=== PATIENT | female | born 1945 | race Asian ===

== ENCOUNTER 2017-08-01 13:33 | Emergency (ER) | payer OTHER, MEDICARE ==
[2017-08-01] MEDS ORDERED: HYDROCODONE/ACETAMINOPHEN 5-325 MG TABLET PO ONE (14:40)
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
[2017-08-01 16:43] VITALS: BP 172/84
== END 2017-08-01 16:45 | disposition home or self-care (01) ==
LOC: ER 13:33
DX: M25.512 Pain in left shoulder (principal); M54.5 Low back pain; V44.5XXA Car driver injured in collision with heavy transport vehicle or bus in traffic accident, initial encounter; E78.00 Pure hypercholesterolemia, unspecified; I10 Essential (primary) hypertension; E11.9 Type 2 diabetes mellitus without complications; G89.29 Other chronic pain; Z90.710 Acquired absence of both cervix and uterus
CPT/HCPCS: 99284

== ENCOUNTER 2017-12-16 21:57 | Inpatient (IN) | payer MEDICARE ==
[2017-12-16] MEDS ORDERED: ONDANSETRON 4 MG TAB.RAPDIS PO ONE (22:25)
[2017-12-16] MEDS ORDERED: MORPHINE SULFATE 10 MG/ML INJ IV ONE (23:21)
[2017-12-16] MEDS ORDERED: ONDANSETRON HCL INJ/PF 4 MG/2 ML SDV IV ONE (23:22)
--- NOTE | 2017-12-16 23:31 | ER Document Report ---
ED Medical Screen (RME) - General Chief Complaint: Back Pain Stated Complaint: LOWER BACK PAIN Time Seen by Provider: 12/16/17 23:15 Mode of Arrival: Ambulatory Information source: Patient TRAVEL OUTSIDE OF THE [place] IN LAST 30 DAYS: No - HPI Patient complains to provider of: abdominal pain Notes: 12/16/17 23:29 Patient is here with complaints of abdominal pain that radiates into her back. States that the pain started a few hours ago. She has a prior history of colon cancer with partial bowel resection. She also believes that her appendix has been removed. She states that the pain is in the right lower abdomen and radiates to the back. Since she has been here she has developed some nausea vomiting. She does complain of some increased urination. Physical exam: Patient appears to be rather uncomfortable. At one point she was noted to be lying on the floor vomiting. On exam she has some tenderness to the right lower quadrant. Do not appreciate any palpable pulsatile mass. All 4 extremity pulses are equal. Plan: Patient will be moved to the main side of the emergency department. I have ordered a CBC, CMP, lipase, lactate, UA, CT abdomen and pelvis with IV contrast. An initial examination was made on the patient as part of the triage process, and it was determined a more comprehensive evaluation was necessary. Initial labs were ordered and patient was transferred to another provider in the ED who assumed care and finished evaluation and plan. - Related Data Allergies/Adverse Reactions: No Known Allergies Allergy (Verified 07/22/16 08:15) Past Medical History - Social History Chew tobacco use (# tins/day): No Frequency of alcohol use: None Drug Abuse: None - Past Medical History Cardiac Medical History: Reports: Hx Hypercholesterolemia, Hx Hypertension Denies: Hx Coronary Artery Disease, Hx Heart Attack Pulmonary Medical History: Denies: Hx Asthma, Hx Bronchitis, Hx COPD, Hx Pneumonia Neurological Medical History: Denies: Hx Cerebrovascular Accident, Hx Seizures Endocrine Medical History: Reports: Hx Diabetes Mellitus Type 2 - borderline Renal/ Medical History: Denies: Hx Peritoneal Dialysis Musculoskeltal Medical History: Reports Hx Arthritis Past Surgical History: Reports: Hx Bowel Surgery - colon resection. Denies: Hx Hysterectomy, Hx Pacemaker - Immunizations Immunizations up to date: No Hx Diphtheria, Pertussis, Tetanus Vaccination: No Physical Exam - Vital signs Vitals: Temp Pulse Resp BP Pulse Ox 98.7 F 75 18 132/86 H 100 12/16/17 22:21 12/16/17 22:21 12/16/17 22:21 12/16/17 22:21 12/16/17 22:21 Course - Vital Signs Vital signs: Temp Pulse Resp BP Pulse Ox 98.7 F 75 18 132/86 H 100 12/16/17 22:21 12/16/17 22:21 12/16/17 22:21 12/16/17 22:21 12/16/17 22:21
[2017-12-16 23:51] LABS: APPEARANCE,URINE CLEAR; BILIRUBIN,URINE NEGATIVE (NEGATIVE); COLOR,URINE STRAW; GLUCOSE, URINE >=500 mg/dL (NEGATIVE); KETONES,URINE NEGATIVE (NEGATIVE); LEUKOCYTE ESTERASE,URINE NEGATIVE (NEGATIVE); NITRITE,URINE NEGATIVE (NEGATIVE); PROTEIN,URINE NEGATIVE (NEGATIVE); URINE SPECIFIC GRAVITY 1.024; UROBILINOGEN,URINE NEGATIVE mg/dL (<2.0)
[2017-12-17 00:36] LABS: HEMATOCRIT 38.7 % (36.0-47.0); HEMOGLOBIN 13.5 g/dL (12.0-15.5); MEAN CORPUSCULAR HEMOGLOBIN 29.5 pg (27.0-33.4); MEAN CORPUSCULAR HGB CONC 34.8 g/dL (32.0-36.0); MEAN CORPUSCULAR VOLUME 85 fl (80-97); PLATELET COUNT 250 10^3/uL (150-450); RED BLOOD COUNT 4.57 10^6/uL (3.72-5.28); RED CELL DISTRIBUTION WIDTH 13.7 % (11.5-14.0); WHITE BLOOD COUNT 8.8 10^3/uL (4.0-10.5)
--- NOTE | 2017-12-17 00:36 | ER Document Report ---
ED General - General Chief Complaint: Back Pain Stated Complaint: LOWER BACK PAIN Time Seen by Provider: 12/16/17 23:15 Mode of Arrival: Ambulatory Notes: Patient is a 72-year-old female who presents to the emergency department with complaints of right lower quadrant abdominal pain that radiates into her back. Patient states that this pain started last night. Patient states that she began vomiting on arrival to the emergency department. Patient denies any diarrhea, patient does state that sometimes when she attempts to have a bowel movement she is unable to have one. Patient was given pain medications prior to my exam, and patient states that her pain has resolved at this time. Patient reports a past medical history of hypertension, hyperlipidemia, non- insulin-dependent diabetes and colon cancer with a colon resection. TRAVEL OUTSIDE OF THE [place] IN LAST 30 DAYS: No - Related Data Allergies/Adverse Reactions: No Known Allergies Allergy (Verified 07/22/16 08:15) Past Medical History - General Information source: Patient - Social History Smoking Status: Unknown if Ever Smoked Chew tobacco use (# tins/day): No Frequency of alcohol use: None Drug Abuse: None Family History: Reviewed & Not Pertinent Patient has suicidal ideation: No Patient has homicidal ideation: No - Past Medical History Cardiac Medical History: Reports: Hx Hypercholesterolemia, Hx Hypertension Denies: Hx Coronary Artery Disease, Hx Heart Attack Pulmonary Medical History: Denies: Hx Asthma, Hx Bronchitis, Hx COPD, Hx Pneumonia Neurological Medical History: Denies: Hx Cerebrovascular Accident, Hx Seizures Endocrine Medical History: Reports: Hx Diabetes Mellitus Type 2 - borderline Renal/ Medical History: Denies: Hx Peritoneal Dialysis Musculoskeltal Medical History: Reports Hx Arthritis Past Surgical History: Reports: Hx Bowel Surgery - colon resection. Denies: Hx Hysterectomy, Hx Pacemaker - Immunizations Immunizations up to date: No Hx Diphtheria, Pertussis, Tetanus Vaccination: No Hx Pneumococcal Vaccination: 09/12/00 Review of Systems - Review of Systems Constitutional: No symptoms reported EENT: No symptoms reported Cardiovascular: No symptoms reported Respiratory: No symptoms reported Gastrointestinal: See HPI Genitourinary: No symptoms reported Female Genitourinary: No symptoms reported Musculoskeletal: See HPI Skin: No symptoms reported Hematologic/Lymphatic: No symptoms reported Neurological/Psychological: No symptoms reported Physical Exam - Vital signs Vitals: Temp Pulse Resp BP Pulse Ox 98.7 F 75 18 132/86 H 100 12/16/17 22:21 12/16/17 22:21 12/16/17 22:21 12/16/17 22:21 12/16/17 22:21 - Notes Notes: PHYSICAL EXAMINATION: GENERAL: Ill-appearing, well-nourished and in mild distress. HEAD: Atraumatic, normocephalic. EYES: Pupils equal round and reactive to light, extraocular movements intact, conjunctiva are normal. ENT: Nares patent, oropharynx clear without exudates. Moist mucous membranes. NECK: Normal range of motion, supple without lymphadenopathy LUNGS: Breath sounds clear to auscultation bilaterally and equal. No wheezes rales or rhonchi. HEART: Regular rate and rhythm without murmurs ABDOMEN: Soft, mildly tender to right lower quadrant, non-distended abdomen. Normoactive bowel sounds. No guarding, no rebound. No masses appreciated. Female : deferred. Musculoskeletal: Normal range of motion, no pitting or edema. No cyanosis. NEUROLOGICAL: Cranial nerves grossly intact. Normal speech. Normal sensory, motor exams PSYCH: Normal mood, flat affect. SKIN: Warm, Dry, normal turgor, no rashes or lesions noted. Course - Re-evaluation Re-evalutation: On initial exam, patient lying in the position on her right side. Assisted patient onto her back for thorough physical examination. Patients abdomen soft, mildly tender with palpation to right lower quadrant, bowel sounds active in all 4 quadrants. Patient reports that pain is better since she had the pain medication that was ordered upfront. Patient will have a CTA abdomen pelvis done to rule out ischemic bowel. 12/17/17 01:00 Patient physical exam remains unchanged, patient quiet states pain is "better" and rates 2/5, vitals stable, lactic acid 3.5, will send patient to CT scan prior to results of BUN/creat due to elevated lactic and initial patient presentation. 12/17/17 01:18 Patient remains in radiology. Patient with marked bandemia, will start invanz 1 gram IV. 12/17/17 01:32 Patient returns from radiology. Patient vomited x1 in radiology , patient reports pain has returned and is 5/5 to right lower abdomen. Abdominal exam remains unchanged, no increase in pain with palpation, soft, non- distended. 12/17/17 02:17 Consulted surgery, Dr. Andre. Patient CT results shows no acute findings, however with patients labs and presentation, I believe surgical consult is necessary. 12/17/17 02:25 Dr. Andre present for physical exam. Dr. Andre does not believe patient has a surgical abdomen, suggest admit to hospitalist and he will consult. Patient denies any primary care physician and states she has not taken any medications in years. 12/17/17 02:43 Consulted hospitalist, Dr. Moreno, he will come see patient. Patient with no change in status, mild RLQ pain, declines additional pain medications. Patient gives permission to call her son, Sang Cary. Attempted with no answer. 12/17/17 02:59 Dr. Moreno at bedside for evaluation and will accept patient for admission. - Vital Signs Vital signs: Temp Pulse Resp BP Pulse Ox 98.5 F 94 16 135/68 H 97 12/17/17 03:50 12/17/17 03:50 12/17/17 03:50 12/17/17 03:50 12/17/17 03:50 - Laboratory Result Diagrams: 12/17/17 00:16 12/17/17 00:16 Laboratory results interpreted by me: 12/16/17 12/17/17 12/17/17 23:38 00:16 00:16 Band Neutrophils % 32 H Lymphocytes % (Manual) 4 L Monocytes % (Manual) 0 L Metamyelocytes % 1 H Abs Neuts (Manual) 8.4 H Abs Lymphs (Manual) 0.4 L Abs Monocytes (Manual) 0.0 L Glucose 455 H* Lactic Acid Alkaline Phosphatase 146 H Urine Glucose (UA) >=500 H Urine Blood SMALL H 12/17/17 00:16 Band Neutrophils % Lymphocytes % (Manual) Monocytes % (Manual) Metamyelocytes % Abs Neuts (Manual) Abs Lymphs (Manual) Abs Monocytes (Manual) Glucose Lactic Acid 3.5 H Alkaline Phosphatase Urine Glucose (UA) Urine Blood Critical Care Note - Critical Care Note Total time excluding time spent on procedures (mins): 35 - Acute abdomen evaluation, lactic acidosis, bandemia Comments: 35 minutes of critical care time spent in direct contact evaluating and reevaluating the patient, treating symptoms, reviewing labs and studies and speaking with surgeon and hospitalist consultants excluding any procedures Discharge - Discharge Clinical Impression: Bandemia, Hyperglycemia, Lactic acid acidosis Abdominal pain Qualifiers: Abdominal location: generalized Qualified Code(s): R10.84 - Generalized abdominal pain Vomiting Qualifiers: Vomiting type: unspecified Vomiting Intractability: non-intractable Nausea presence: with nausea Qualified Code(s): R11.2 - Nausea with vomiting, unspecified Condition: Fair Disposition: ADMITTED INPATIENT Admitting Provider: Hospitalist Unit Admitted: Telemetry
[2017-12-17 01:03] LABS: ABSOLUTE LYMPHOCYTES# (MANUAL) 0.4 10^3/uL (0.5-4.7); ABSOLUTE NEUTROPHILS# (MANUAL) 8.4 10^3/uL (1.7-8.2); BASOPHILS % (MANUAL) 0 % (0-2); EOSINOPHILS % (MANUAL) 0 % (0-6); LYMPHOCYTES % (MANUAL) 4 % (13-45); MONOCYTES % (MANUAL) 0 % (3-13); SEGMENTED NEUTROPHILS % (MAN) 63 % (42-78); TOTAL CELLS COUNTED 100; TOXIC VACUOLATION PRESENT
[2017-12-17 01:05] LABS: PLATELET COMMENT ADEQUATE; PLATELET LARGE PRESENT; RBC MORPHOLOGY COMMENT NORMO-CYTIC/CHROMIC
[2017-12-17 01:06] LABS: BAND NEUTROPHILS % (MANUAL) 32 % (3-5); METAMYELOCYTES % (MANUAL) 1 % (0)
[2017-12-17 01:12] LABS: ALANINE AMINOTRANSFERASE 25 U/L (9-52); ALBUMIN 4.4 g/dL (3.5-5.0); ALKALINE PHOSPHATASE 146 U/L (38-126); ANION GAP 15 (5-19); ASPARTATE AMINO TRANSFERASE 21 U/L (14-36); BILIRUBIN,DIRECT 0.3 mg/dL (0.0-0.4); BILIRUBIN,TOTAL 0.6 mg/dL (0.2-1.3); BLOOD UREA NITROGEN 16 mg/dL (7-20); CALCIUM 9.1 mg/dL (8.4-10.2); CARBON DIOXIDE 24 mmol/L (22-30); CHLORIDE 99 mmol/L (98-107); LIPASE 75.3 U/L (23-300); POTASSIUM 3.6 mmol/L (3.6-5.0); SODIUM 138.2 mmol/L (137-145); TOTAL PROTEIN 7.4 g/dL (6.3-8.2)
[2017-12-17] MEDS ORDERED: ERTAPENEM SODIUM INJ 1 GM VIAL IV ONE (01:18)
[2017-12-17 01:22] LABS: GLUCOSE 455 mg/dL (75-110)
[2017-12-17] MEDS ORDERED: FENTANYL CITRATE INJ/PF 100 MCG/2 ML AMPUL IV ONE (01:31)
[2017-12-17] MEDS ORDERED: METOCLOPRAMIDE HCL INJ/PF 10 MG/2 ML SDV IV ONE (01:32)
[2017-12-17 01:39] LABS: PROTHROMBIN TIME 12.6 SEC (11.4-15.4)
[2017-12-17] MEDS ORDERED: NORMAL SALINE 1000 ML 1,000 ML IV ONE ×4 (01:55→17:38)
--- NOTE | 2017-12-17 02:07 | RADIOLOGY REPORT (SQ) ---
EXAM DESCRIPTION: CT ABDOMEN AND PELVIS WITH CONTRAST CLINICAL HISTORY: abdominal pain, eval for ischemic bowel COMPARISON: None Available. TECHNIQUE: CTA of the abdomen and pelvis performed following IV administration of 100 mL of Isovue-370. 3-D/MIP reformatted images available. DLP: 1145.10 mGycm FINDINGS: Lung Bases: The visualized lung bases imaging bibasilar dependent atelectasis. Bones: No destructive bone lesions identified. Degenerative spondylosis. Abdomen: CTA: The abdominal aorta has normal caliber with mild atherosclerotic plaque. No evidence of dissection. There is in-line flow from the abdominal aorta into the common iliac, external iliac, and superficial femoral arteries. No evidence of flow-limiting stenosis. The internal iliac and profunda femoral artery are patent proximally. The renal arteries are patent bilaterally. No definite accessory renal arteries identified. The celiac artery is widely patent with normal branch pattern. The superior mesenteric artery has normal caliber without evidence of stenosis, pseudoaneurysm, or dissection. Branch vessels appear patent. The inferior mesenteric artery is patent. Liver: The liver has normal size and density. No intrahepatic mass or biliary dilatation. Gallbladder: No calcified gallstones. Spleen, Pancreas, and Adrenal Glands: The spleen, pancreas, and adrenal glands are unremarkable. Kidneys: Mild right hydronephrosis and hydroureter. No obstructing ureteral calculi identified. Mild soft tissue prominence at the right UVJ of indeterminate etiology. No left-sided hydronephrosis. Vasculature: IVC is unremarkable. The portal vein is patent. Stomach: The stomach and duodenum have normal course. Other: No free intraperitoneal air. Small fat-containing ventral hernia. Pelvis: Bladder: Urinary bladder is unremarkable. Bowel: No dilated loops of large or small bowel. Appendix: Postoperative change of the cecum. No evidence of appendicitis. Pelvis: Uterus is not enlarged. IMPRESSION: 1. No evidence of vascular stenosis or occlusion involving the visceral arteries. No aortic aneurysm or dissection. 2. Mild right hydronephrosis and hydroureter with ill-defined soft tissue thickening at the right UVJ. No right ureteral calculus identified. Urology consult may be helpful. This exam was performed according to our departmental dose-optimization program, which includes automated exposure control, adjustment of the mA and/or kV according to patient size and/or use of iterative reconstruction technique.
[2017-12-17] MEDS ORDERED: OXYCODONE-ACETAMINOPHEN 5-325 MG TABLET PO PRN (03:26)
[2017-12-17] MEDS ORDERED: ONDANSETRON HCL INJ/PF 4 MG/2 ML SDV IV PRN (03:26)
[2017-12-17] MEDS ORDERED: DEXTROSE 50%-WATER 25 GM/50 ML DISP.SYRIN IV PRN ×2 (03:34)
[2017-12-17] MEDS ORDERED: DEXTROSE 40% GEL 15 GM TUBE PO PRN ×2 (03:34)
[2017-12-17] MEDS ORDERED: GLUCAGON,HUMAN RECOMB 1 MG INJ IM PRN (03:34)
--- NOTE | 2017-12-17 03:49 | PDOC H&P ---
History of Present Illness Admission Date/PCP: 12/17/17 03:14 History of Present Illness: ESE ALLEN is a 72 year old female patient presented with chief complaint of right lower quadrant pain. During my encounter patient is heavily sedated with morphine and fentanyl and she is not source of history. Brief history is obtained from ER attending note. As per ER attending note patient presented with chief complaint of lower quadrant abdominal pains that radiates into her back. Patient states that this pain started last night patient states she began vomiting on arrival to the emergency department. Her past medical history is remarkable for hypertension, diabetes mellitus, hyperlipidemia and colon cancer she is status post resection. Her initial blood work shows bandemia of 32 and lactic acidosis of 3.5. CT scan of the abdomen is negative for renal calculi. Detailed history and review of systems unobtainable. Past Medical History Cardiac Medical History: Reports: Hyperlipidema, Hypertension Denies: Coronary Artery Disease, Myocardial Infarction Pulmonary Medical History: Denies: Asthma, Bronchitis, Chronic Obstructive Pulmonary Disease (COPD), Pneumonia Neurological Medical History: Denies: Seizures Endocrine Medical History: Reports: Diabetes Mellitus Type 2 - borderline GI History Note: Colon cancer Musculoskeltal Medical History: Reports: Arthritis Hematology: Denies: Anemia Past Surgical History Past Surgical History: Reports: Other - Partial colectomy Denies: Hysterectomy, Pacemaker Social History Smoking Status: Unknown if Ever Smoked Family History Family History: Reviewed & Not Pertinent Parental Family History Reviewed: No - Unobtainable because of patient's mental status Children Family History Reviewed: Unknown Sibling(s) Family History Reviewed.: Unknown Medication/Allergy Home Medications: No Home Medications 01/12/12 Oxycodone HCl/Acetaminophen [Percocet 5-325 mg Tablet] 1 - 2 tab PO Q4H PRN #15 tablet 01/10/15 Docusate Sodium [Colace 100 mg Capsule] 100 mg PO DAILY #30 capsule 07/22/16 Hydrocodone Bit/Acetaminophen [Hydrocodon-Acetaminophen 5-325] 1 each PO Q6 #10 tablet 07/22/16 Hydrocodone/Acetaminophen [Hancock 5-325 mg Tablet] 1 tab PO Q6HP PRN #7 tablet Allergies/Adverse Reactions: No Known Allergies Allergy (Verified 07/22/16 08:15) Review of Systems ROS unobtainable: Due to mental status Physical Exam Vital Signs: Temp Pulse Resp BP Pulse Ox 98.7 F 75 18 145/67 H 94 12/16/17 22:21 12/16/17 22:21 12/17/17 02:01 12/17/17 02:01 12/17/17 02:01 General appearance: PRESENT: no acute distress Eye exam: PRESENT: conjunctiva pink, EOMI, PERRLA. ABSENT: scleral icterus Mouth exam: PRESENT: dry mucosa Respiratory exam: PRESENT: clear to auscultation kwame. ABSENT: rales, rhonchi, wheezes Cardiovascular exam: PRESENT: RRR. ABSENT: diastolic murmur, rubs, systolic murmur GI/Abdominal exam: PRESENT: tenderness - Right lower quadrant tenderness on deep palpation Results Impressions: Abdomen/Pelvis CTA 12/17/17 00:14 IMPRESSION: 1. No evidence of vascular stenosis or occlusion involving the visceral arteries. No aortic aneurysm or dissection. 2. Mild right hydronephrosis and hydroureter with ill-defined soft tissue thickening at the right UVJ. No right ureteral calculus identified. Urology consult may be helpful. This exam was performed according to our departmental dose-optimization program, which includes automated exposure control, adjustment of the mA and/or kV according to patient size and/or use of iterative reconstruction technique. Assessment & Plan - Diagnosis (1) Sepsis Qualifiers: Sepsis type: sepsis due to unspecified organism Qualified Code(s): A41.9 - Sepsis, unspecified organism Is this a current diagnosis for this admission?: Yes Plan: Sepsis is a possibility based on lactic acidosis and bandemia. Patient empirically started on Rocephin 2 g IV daily. We will adjust her antibiotics based on her culture results. (2) Hyperglycemia Is this a current diagnosis for this admission?: Yes Plan: Patient has underlying diabetes. Reportedly patient does not have follow-up is I will put her on sliding scale and later she will be started on her home medication. (3) Hypertension Qualifiers: Hypertension type: essential hypertension Qualified Code(s): I10 - Essential (primary) hypertension Is this a current diagnosis for this admission?: Yes Plan: Continue her home medication. (4) Colon cancer Qualifiers: Colon location: unspecified part of colon Qualified Code(s): C18.9 - Malignant neoplasm of colon, unspecified Is this a current diagnosis for this admission?: No Plan: Status post resection now in remission. - Time Time Spent: 30 to 50 Minutes Within: within 72 hours - Inpatient Certification Medical Necessity: Need for IV Antibiotics
[2017-12-17] MEDS: LANSOPRAZOLE 30 MG TAB.RAP.DR PO SCH (06:56)
[2017-12-17] MEDS: INSULIN REG, HUMAN 100 UNIT/ML 3 ML VIAL (PYX) SUBCUT PRN ×4 (08:49→21:11)
[2017-12-17] MEDS ORDERED: CEFTRIAXONE 2 GM/D5W RTU 2 GM/50 ML RTUPB IV SCH (10:00)
[2017-12-17] MEDS ORDERED: CEFEPIME 2 GM/D5W RTU 2 GM/50 ML RTUPB IV SCH (10:00)
--- NOTE | 2017-12-17 10:14 | EKG REPORT ---
SEVERITY:- ABNORMAL ECG - SINUS RHYTHM CONSIDER LEFT VENTRICULAR HYPERTROPHY BORDERLINE INFERIOR Q WAVES BORDERLINE PROLONGED QT INTERVAL : Confirmed by: Jerilyn Dias 17-Dec-2017 10:12:52
[2017-12-17] MEDS: ENOXAPARIN SODIUM INJ 40 MG/0.4 ML DISP.SYRIN SUBCUT SCH (11:06)
[2017-12-17] MEDS ORDERED: ACETAMINOPHEN 325 MG TABLET PO PRN (11:21)
[2017-12-17] MEDS ORDERED: CEFEPIME HCL 2 GM in DEXTROSE 5%-WATER 100 ML IV ONE (12:30)
--- NOTE | 2017-12-17 16:49 | PDOC CONSULTATION ---
History of Present Illness Admission Date/PCP: 12/17/17 03:14 Patient complains of: right back pains radiating to the front History of Present Illness: 72 yo female who was brought to the ED by her co-worker because of right back pains radiating to the front associated N/V 12/16/17. History of right colon resecton in 2007. Had a colonoscopy by Dr Perez in 2011 which showed no tumor recurrence only "cryptitis" of the anastomosis. These are obtained from her old records. Patient very weak and appears confused to answer questions. Past Medical History Cardiac Medical History: Reports: Hyperlipidema, Hypertension Denies: Coronary Artery Disease, Myocardial Infarction Pulmonary Medical History: Denies: Asthma, Bronchitis, Chronic Obstructive Pulmonary Disease (COPD), Pneumonia Neurological Medical History: Denies: Seizures Endocrine Medical History: Reports: Diabetes Mellitus Type 2 - borderline Musculoskeltal Medical History: Reports: Arthritis Psychiatric Medical History: Denies: Depression Hematology: Denies: Anemia Past Surgical History Past Surgical History: Reports: Other - Partial colectomy Denies: Hysterectomy, Pacemaker Social History Smoking Status: Unknown if Ever Smoked Frequency of Alcohol Use: None Hx Recreational Drug Use: No Hx Prescription Drug Abuse: No Family History Family History: Reviewed & Not Pertinent Parental Family History Reviewed: No - unable to obtain, pt very weak and confused Children Family History Reviewed: No Sibling(s) Family History Reviewed.: No Medication/Allergy Home Medications: No Home Medications 12/17/17 Allergies/Adverse Reactions: No Known Allergies Allergy (Verified 07/22/16 08:15) Review of Systems ROS unobtainable: Due to mental status - unobtainable other than her main complaints Physical Exam Vital Signs: Temp Pulse Resp BP Pulse Ox 98.7 F 89 16 122/55 L 96 12/17/17 16:00 12/17/17 16:00 12/17/17 16:00 12/17/17 16:00 12/17/17 16:00 Intake & Output 12/16/17 12/17/17 12/18/17 06:59 06:59 06:59 Intake Total 120 Output Total 0 Balance 120 Weight 50.1 kg Exam: abd is soft with mild tenderness at the RLQ. Patient appears very weak and dehydrated and appears confused. Her lactic acid is elevated with bandemia. Results Laboratory Results: 12/17/17 12/17/17 12/17/17 08:44 11:30 11:30 Lactic Acid 4.7 H Cancelled 4.7 H 12/17/17 11:30 Troponin I < 0.012 Impressions: Abdomen/Pelvis CTA 12/17/17 00:14 IMPRESSION: 1. No evidence of vascular stenosis or occlusion involving the visceral arteries. No aortic aneurysm or dissection. 2. Mild right hydronephrosis and hydroureter with ill-defined soft tissue thickening at the right UVJ. No right ureteral calculus identified. Urology consult may be helpful. This exam was performed according to our departmental dose-optimization program, which includes automated exposure control, adjustment of the mA and/or kV according to patient size and/or use of iterative reconstruction technique. Assessment & Plan - Diagnosis (1) Hydronephrosis, right Is this a current diagnosis for this admission?: Yes (2) Abdominal pain Qualifiers: Abdominal location: generalized Qualified Code(s): R10.84 - Generalized abdominal pain Is this a current diagnosis for this admission?: Yes (3) Bandemia Is this a current diagnosis for this admission?: Yes (4) soft tissue prominence at the right UVJ Is this a current diagnosis for this admission?: Yes - Time Time Spent: 30 to 50 Minutes - Plan Summary Plan Summary: No surgical abdomen at this time Hydrate,panculture Empiric antibiotics Urology consultation
[2017-12-17] MEDS ORDERED: NORMAL SALINE 1000 ML 1,000 ML IV PRN ×3 (17:37→17:41)
--- NOTE | 2017-12-17 19:27 | Progress Note ---
Provider Note Provider Note: This patient was admittd after midnight. She woke up this am and her abdominal pain was resolved. She has not been able to urinate today, bladder scan showed that 100 mL of urine. Her appetite is good. She overall feels better but her lactic acid is still elevated. At this point there is no sign of infection. She was significantly hyperglycemic on admission. Treatment ordered by not turn us to her hyperglycemia has improved quite a bit. On exam she is awake alert oriented no acute distress. Regular rate rhythm. Lungs are clear to auscultation bilaterally. No flank tenderness to palpation. No abdominal tenderness to palpation. No edema. Plan is to continue to fluid hydrate her for a possible dehydration or elevated lactate related to hyperglycemia and an untreated diabetes type picture she is receiving her third liter of saline and then I started her on normal saline at 125 mL/h. Lactic acid level is pending and if it is not normal the nurse will inform physician. She is hemodynamically stable.
[2017-12-17] MEDS: NORMAL SALINE 1000 ML 1,000 ML IV PRN (21:09)
[2017-12-17] MEDS: CEFEPIME HCL 2 GM in DEXTROSE 5%-WATER 100 ML IV SCH (21:10)
[2017-12-18 04:50] LABS: ABSOLUTE BASOPHILS # (AUTO) 0.1 10^3/uL (0.0-0.2); ABSOLUTE EOSINOPHILS # (AUTO) 0.1 10^3/uL (0.0-0.6); ABSOLUTE LYMPHOCYTES (AUTO) 0.8 10^3/uL (0.5-4.7); ABSOLUTE MONOCYTES (AUTO) 0.6 10^3/uL (0.1-1.4); ABSOLUTE NEUT (AUTO) 12.6 10^3/uL (1.7-8.2); BASOPHILS % (AUTO) 0.4 % (0-2); EOSINOPHILS % (AUTO) 0.8 % (0-6); HEMATOCRIT 30.4 % (36.0-47.0); LYMPHOCYTES % (AUTO) 5.8 % (13-45); MEAN CORPUSCULAR HEMOGLOBIN 29.5 pg (27.0-33.4); MEAN CORPUSCULAR HGB CONC 35.2 g/dL (32.0-36.0); MEAN CORPUSCULAR VOLUME 84 fl (80-97); PLATELET COUNT 146 10^3/uL (150-450); RED BLOOD COUNT 3.63 10^6/uL (3.72-5.28); RED CELL DISTRIBUTION WIDTH 14.1 % (11.5-14.0); TOTAL CELLS COUNTED % (AUTO) 100 %; WHITE BLOOD COUNT 14.2 10^3/uL (4.0-10.5)
[2017-12-18 04:53] LABS: HEMOGLOBIN 10.7 g/dL (12.0-15.5)
[2017-12-18 05:10] LABS: ALANINE AMINOTRANSFERASE 39 U/L (9-52); ALBUMIN 2.5 g/dL (3.5-5.0); ALKALINE PHOSPHATASE 96 U/L (38-126); ANION GAP 5 (5-19); ASPARTATE AMINO TRANSFERASE 24 U/L (14-36); BILIRUBIN,DIRECT 0.2 mg/dL (0.0-0.4); BILIRUBIN,TOTAL 0.8 mg/dL (0.2-1.3); BLOOD UREA NITROGEN 17 mg/dL (7-20); CARBON DIOXIDE 22 mmol/L (22-30); CHLORIDE 109 mmol/L (98-107); GLUCOSE 163 mg/dL (75-110); POTASSIUM 3.1 mmol/L (3.6-5.0); SODIUM 136.1 mmol/L (137-145); TOTAL PROTEIN 4.8 g/dL (6.3-8.2)
[2017-12-18] MEDS: LANSOPRAZOLE 30 MG TAB.RAP.DR PO SCH (06:20)
[2017-12-18] MEDS ORDERED: POTASSIUM CHLORIDE 10 MEQ TABLET.SA PO SCH (08:00)
[2017-12-18] MEDS: INSULIN REG, HUMAN 100 UNIT/ML 3 ML VIAL (PYX) SUBCUT PRN ×3 (09:59→22:19)
[2017-12-18] MEDS ORDERED: POTASSIUM CHLORIDE 10 MEQ TABLET.SA PO ONE ×2 (11:00→19:00)
[2017-12-18] MEDS: CEFEPIME HCL 2 GM in DEXTROSE 5%-WATER 100 ML IV SCH (11:21)
[2017-12-18] MEDS: ENOXAPARIN SODIUM INJ 40 MG/0.4 ML DISP.SYRIN SUBCUT SCH (11:22)
[2017-12-18] MEDS: NORMAL SALINE 1000 ML 1,000 ML IV PRN (11:25)
[2017-12-18] MEDS ORDERED: NORMAL SALINE 1000 ML 1,000 ML IV PRN (11:28)
--- NOTE | 2017-12-18 14:34 | PDOC PROGRESS REPORT ---
Subjective Progress Note for:: 12/18/17 Subjective:: Patient has been sleeping most of the day. She just showered. She is feeling better. She started urinating late last night. Her urine is still very dark. She did not know that she had diabetes and tells me that her doctor a few years ago told her she was prediabetic but she has not seen a doctor in 3 years. She is weak but improving in this regard. Her abdominal pain is improving as well. No nausea or vomiting. She is not eating well because she does not like the food here. No fevers or chills. Reason For Visit: POSSIBLE SEPSIS Physical Exam Vital Signs: Temp Pulse Resp BP Pulse Ox 98.2 F 75 16 160/62 H 93 12/18/17 12:00 12/18/17 12:00 12/18/17 12:00 12/18/17 12:00 12/18/17 12:00 Intake & Output 12/17/17 12/18/17 12/19/17 06:59 06:59 06:59 Intake Total 120 3970 Output Total 0 900 Balance 120 3070 Weight 50.1 kg 58 kg General appearance: PRESENT: no acute distress, cooperative, well-developed, well-nourished Head exam: PRESENT: atraumatic, normocephalic Eye exam: PRESENT: conjunctiva pink, EOMI. ABSENT: scleral icterus Mouth exam: PRESENT: moist, neck supple Neck exam: ABSENT: lymphadenopathy Respiratory exam: PRESENT: clear to auscultation kwame, unlabored. ABSENT: rales , rhonchi, wheezes Cardiovascular exam: PRESENT: RRR. ABSENT: systolic murmur Pulses: PRESENT: normal radial pulses GI/Abdominal exam: PRESENT: normal bowel sounds, soft, tenderness - Mild tenderness over the right lower quadrant. Improving. No guarding or rebound.. ABSENT: distended, guarding, rebound Rectal exam: PRESENT: deferred Extremities exam: ABSENT: pedal edema Neurological exam: PRESENT: alert, awake, oriented to person, oriented to place , oriented to situation, CN II-XII grossly intact, normal gait Psychiatric exam: PRESENT: appropriate affect. ABSENT: anxious Skin exam: PRESENT: dry, intact, warm Results Laboratory Results: 12/18/17 03:40 12/18/17 03:40 12/17/17 12/17/17 12/18/17 19:36 23:29 03:40 WBC 14.2 H RBC 3.63 L Hgb 10.7 L D Hct 30.4 L MCV 84 MCH 29.5 MCHC 35.2 RDW 14.1 H Plt Count 146 L Seg Neutrophils % 89.0 H Lymphocytes % 5.8 L Monocytes % 4.0 Eosinophils % 0.8 Basophils % 0.4 Absolute Neutrophils 12.6 H Absolute Lymphocytes 0.8 Absolute Monocytes 0.6 Absolute Eosinophils 0.1 Absolute Basophils 0.1 Sodium Potassium Chloride Carbon Dioxide Anion Gap BUN Creatinine Est GFR ( Amer) Est GFR (Non-Af Amer) Glucose Lactic Acid 2.2 H 1.4 Calcium Total Bilirubin AST ALT Alkaline Phosphatase Total Protein Albumin 12/18/17 03:40 WBC RBC Hgb Hct MCV MCH MCHC RDW Plt Count Seg Neutrophils % Lymphocytes % Monocytes % Eosinophils % Basophils % Absolute Neutrophils Absolute Lymphocytes Absolute Monocytes Absolute Eosinophils Absolute Basophils Sodium 136.1 L Potassium 3.1 L Chloride 109 H Carbon Dioxide 22 Anion Gap 5 BUN 17 Creatinine 0.51 L Est GFR ( Amer) > 60 Est GFR (Non-Af Amer) > 60 Glucose 163 H Lactic Acid Calcium 8.0 L Total Bilirubin 0.8 AST 24 ALT 39 Alkaline Phosphatase 96 Total Protein 4.8 L Albumin 2.5 L 12/17/17 11:30 Troponin I < 0.012 Impressions: Abdomen/Pelvis CTA 12/17/17 00:14 IMPRESSION: 1. No evidence of vascular stenosis or occlusion involving the visceral arteries. No aortic aneurysm or dissection. 2. Mild right hydronephrosis and hydroureter with ill-defined soft tissue thickening at the right UVJ. No right ureteral calculus identified. Urology consult may be helpful. This exam was performed according to our departmental dose-optimization program, which includes automated exposure control, adjustment of the mA and/or kV according to patient size and/or use of iterative reconstruction technique. Assessment & Plan - Diagnosis (1) Type 2 diabetes mellitus Qualifiers: Diabetes mellitus terminal make up operator insulin use: without nursing home use Diabetes mellitus complication status: with hyperglycemia Qualified Code(s): E11.65 - Type 2 diabetes mellitus with hyperglycemia Is this a current diagnosis for this admission?: Yes Plan: Patient has undiagnosed untreated diabetes. Her hemoglobin A1c is 12.1. She was admitted to the hospital with significant hyperglycemia, lactic acidosis. Her blood sugars are under better control with short acting bolus insulin. I started her on metformin twice daily. Actiq acidosis has resolved. She was aggressively fluid hydrated. No sign of infection at this time. There are some culture still pending. Her abdominal pain is improved. CT scan of the abdomen pelvis was unconcerning. (2) Abdominal pain Qualifiers: Abdominal location: generalized Qualified Code(s): R10.84 - Generalized abdominal pain Is this a current diagnosis for this admission?: Yes Plan: Improved. Possibly secondary to hyperglycemia with a very early DKA type picture. No intra-abdominal process that appears concerning. Patient is moving her bowels. No nausea or vomiting. She is eating and drinking without difficulty now. (3) Hypertension Qualifiers: Hypertension type: essential hypertension Qualified Code(s): I10 - Essential (primary) hypertension Is this a current diagnosis for this admission?: Yes Plan: Blood pressure is not well controlled. She now has a diagnosis of diabetes. I am going to start her on lisinopril 5 mg daily and recheck tomorrow. (4) Lactic acid acidosis Is this a current diagnosis for this admission?: Yes Plan: Resolved with aggressive fluid hydration. She is making better urine now though it is still dark. Will encourage good fluid hydration. We will continue IV fluids and reevaluate tomorrow. Lactic acid has returned to normal. (5) soft tissue prominence at the right UVJ Is this a current diagnosis for this admission?: Yes Plan: Patient reports that this is long-standing and has been seen on other CAT scans. Initially there was the thought that she had a kidney stone. She now has chronic back pain and she states that she is back to baseline. Does not have any CVA tenderness on exam. She does have a small amount of blood in her urinalysis. - Time Time Spent with patient: 25-34 minutes Anticipated discharge: Home - Inpatient Certification Based on my medical assessment, after consideration of the patient's comorbidities, presenting symptoms, or acuity I expect that the services needed warrant INPATIENT care.: Yes I certify that my determination is in accordance with my understanding of Medicare's requirements for reasonable and necessary INPATIENT services [42 CFR 412.3e].: Yes Medical Necessity: Need Close Monitoring Due to Risk of Patient Decompensation, Risk of Complication if Not Cared For in Hospital
[2017-12-18] MEDS ORDERED: LISINOPRIL 5 MG TABLET PO ONE (16:15)
[2017-12-18] MEDS: METFORMIN HCL 500 MG TABLET PO SCH (16:44)
[2017-12-19 04:45] LABS: HEMATOCRIT 30.3 % (36.0-47.0); HEMOGLOBIN 10.6 g/dL (12.0-15.5); MEAN CORPUSCULAR HEMOGLOBIN 29.8 pg (27.0-33.4); MEAN CORPUSCULAR HGB CONC 34.9 g/dL (32.0-36.0); MEAN CORPUSCULAR VOLUME 85 fl (80-97); PLATELET COUNT 150 10^3/uL (150-450); RED BLOOD COUNT 3.54 10^6/uL (3.72-5.28); RED CELL DISTRIBUTION WIDTH 13.7 % (11.5-14.0); WHITE BLOOD COUNT 9.2 10^3/uL (4.0-10.5)
[2017-12-19 05:13] LABS: BLOOD UREA NITROGEN 7 mg/dL (7-20); CALCIUM 8.4 mg/dL (8.4-10.2); GLUCOSE 151 mg/dL (75-110); POTASSIUM 3.9 mmol/L (3.6-5.0)
[2017-12-19 05:19] LABS: CARBON DIOXIDE 24 mmol/L (22-30); CHLORIDE 110 mmol/L (98-107); SODIUM 138.4 mmol/L (137-145)
[2017-12-19 05:20] LABS: ANION GAP 4 (5-19)
[2017-12-19] MEDS: LANSOPRAZOLE 30 MG TAB.RAP.DR PO SCH (06:11)
[2017-12-19] MEDS ORDERED: LISINOPRIL 10 MG TABLET PO SCH (10:00)
[2017-12-19] MEDS ORDERED: LISINOPRIL 5 MG TABLET PO SCH (10:00)
[2017-12-19] MEDS: METFORMIN HCL 500 MG TABLET PO SCH ×2 (10:04→16:22)
[2017-12-19] MEDS: ENOXAPARIN SODIUM INJ 40 MG/0.4 ML DISP.SYRIN SUBCUT SCH (10:05)
[2017-12-19] MEDS: INSULIN REG, HUMAN 100 UNIT/ML 3 ML VIAL (PYX) SUBCUT PRN ×2 (10:22→13:43)
[2017-12-19] MEDS ORDERED: GLUCAGON,HUMAN RECOMB 1 MG INJ IM PRN ×2 (14:10→14:16)
[2017-12-19] MEDS ORDERED: DEXTROSE 50%-WATER 25 GM/50 ML DISP.SYRIN IV PRN ×4 (14:10→14:16)
[2017-12-19] MEDS ORDERED: DEXTROSE 40% GEL 15 GM TUBE PO PRN ×4 (14:10→14:16)
--- NOTE | 2017-12-19 14:30 | PDOC DISCHARGE SUMMARY ---
General - Admit/Disc Date/PCP Admission Date/Primary Care Provider: 12/17/17 03:14 Patient has no primary care doctor, staff trying to find her a new PCP a she is on some new medications and has new diagnoses of diabetes and HTN Discharge Date: 12/19/17 - Discharge Diagnosis (1) Type 2 diabetes mellitus Is this a current diagnosis for this admission?: Yes Summary: Patient states that she has not seen a doctor in 3 years. She tells me that she has been told that she was prediabetic in the past. She was admitted with fairly severe hyperglycemia and abdominal pain. She did not have diabetic ketoacidosis but she did have a lactic acidosis. Started her on sliding scale insulin and metformin. She also was fluid hydrated and eventually the lactic acidosis resolved. She will be discharged with these medications for diabetes and with PCP follow-up. Hemoglobin A1c was 12. She has received diabetic education and insulin teaching prior to discharge. (2) Abdominal pain Is this a current diagnosis for this admission?: Yes Summary: This is resolved. She had it in the ER when she came in with hyperglycemia and lactic acidosis. Surgeon evaluated her and she was not found to have an acute abdomen. Imaging has not been concerning. Patient's abdominal pain is resolved and she is eating and drinking and stooling without difficulty. (3) Hypertension Is this a current diagnosis for this admission?: Yes Summary: I started patient on lisinopril 10 mg daily. Our hope is that she will follow up closely with her new PCP. (4) Lactic acid acidosis Is this a current diagnosis for this admission?: Yes Summary: Possibly secondary to uncontrolled diabetes. Patient's lactate is back to normal after significant fluid hydration. She is eating and drinking without difficulty. Urinating well. She knows to try to stay well hydrated. (5) soft tissue prominence at the right UVJ Is this a current diagnosis for this admission?: Yes Summary: States that the prominence at the right UV junction has been seen several times over the past few years with imaging. Initially it was thought that she had a kidney stone during this admission but does not appear to be so. She dates that this problem is chronic and of unclear etiology, she does not have CVA tenderness. - Additional Information Prescriptions: Alcohol Antiseptic Pads [Alcohol Prep Pads] 1 pad TP ASDIR 30 Days #1 pkg Blood Sugar Diagnostic [Blood Glucose Test Strip] 1 strip [facility] ACHS PRN #1 pkg PRN Reason: Insulin Lispro [Humalog Insulin (Lispro) 100 unit/mL] See Protocol SUBCUT ACHS # 1 bottle Lancing Device/Lancets [Accu-Chek Fastclix Lancet Kit] 1 kit ASDIR PRN #1 kit PRN Reason: Lisinopril [Prinivil 10 mg Tablet] 10 mg PO DAILY #30 tablet Metformin HCl [Glucophage 500 mg Tablet] 500 mg PO BIDACBS #60 tablet Home Medications: Alcohol Antiseptic Pads [Alcohol Prep Pads] 1 pad TP ASDIR 30 Days #1 pkg Blood Sugar Diagnostic [Blood Glucose Test Strip] 1 strip [facility] PRN #1 pkg 05/30 Insulin Lispro [Humalog Insulin (Lispro) 100 unit/mL] See Protocol SUBCUT ACHS # 1 bottle 12/19/17 Lancing Device/Lancets [Accu-Chek Fastclix Lancet Kit] 1 kit ASDIR PRN #1 kit 12/19/17 Lisinopril [Prinivil 10 mg Tablet] 10 mg PO DAILY #30 tablet 12/19/17 Metformin HCl [Glucophage 500 mg Tablet] 500 mg PO BIDACBS #60 tablet 12/19/17 History of Present Illness History of Present Illness: ESE ALLEN is a 72 year old female patient presented with chief complaint of right lower quadrant pain. During my encounter patient is heavily sedated with morphine and fentanyl and she is not source of history. Brief history is obtained from ER attending note. As per ER attending note patient presented with chief complaint of lower quadrant abdominal pains that radiates into her back. Patient states that this pain started last night patient states she began vomiting on arrival to the emergency department. Her past medical history is remarkable for pre diabetes mellitus, hyperlipidemia and colon cancer she is status post resection. Her initial blood work shows bandemia of 32 and lactic acidosis of 3.5. CT scan of the abdomen is negative for renal calculi. Detailed history and review of systems unobtainable. Hospital Course Hospital Course: Please see problem list above. Physical Exam Vital Signs: Temp Pulse Resp BP Pulse Ox 98.4 F 69 12 149/61 H 94 12/19/17 08:20 12/19/17 08:20 12/19/17 08:20 12/19/17 08:20 12/19/17 08:20 Intake & Output 12/18/17 12/19/17 12/20/17 06:59 06:59 06:59 Intake Total 3970 4380 237 Output Total 900 4850 Balance 3070 -470 237 Weight 58 kg 56 kg General appearance: PRESENT: no acute distress, cooperative, thin Head exam: PRESENT: atraumatic, normocephalic Eye exam: PRESENT: conjunctiva pink. ABSENT: scleral icterus Mouth exam: PRESENT: moist, neck supple Respiratory exam: PRESENT: clear to auscultation kwame, unlabored. ABSENT: rales , rhonchi, wheezes Cardiovascular exam: PRESENT: RRR. ABSENT: systolic murmur Pulses: PRESENT: normal radial pulses GI/Abdominal exam: PRESENT: normal bowel sounds, soft. ABSENT: distended, firm , guarding, mass, tenderness Extremities exam: ABSENT: pedal edema Musculoskeletal exam: PRESENT: normal inspection Neurological exam: PRESENT: alert, awake, oriented to person, oriented to place , oriented to situation, CN II-XII grossly intact Psychiatric exam: PRESENT: appropriate affect. ABSENT: anxious Skin exam: PRESENT: dry, intact, warm Results Laboratory Results: 12/19/17 04:08 12/19/17 04:08 12/18/17 12/19/17 12/19/17 03:40 04:08 04:08 WBC 9.2 RBC 3.54 L Hgb 10.6 L Hct 30.3 L MCV 85 MCH 29.8 MCHC 34.9 RDW 13.7 Plt Count 150 Sodium 138.4 Potassium 3.9 Chloride 110 H Carbon Dioxide 24 Anion Gap 4 L BUN 7 Creatinine 0.46 L Est GFR ( Amer) > 60 Est GFR (Non-Af Amer) > 60 Glucose 151 H Calcium 8.4 Lipase 47.7 12/17/17 18:23 Clean Catch Midstream Urine Culture - Final NO GROWTH 2 DAYS 12/17/17 11:30 Troponin I < 0.012 Impressions: Abdomen/Pelvis CTA 12/17/17 00:14 IMPRESSION: 1. No evidence of vascular stenosis or occlusion involving the visceral arteries. No aortic aneurysm or dissection. 2. Mild right hydronephrosis and hydroureter with ill-defined soft tissue thickening at the right UVJ. No right ureteral calculus identified. Urology consult may be helpful. This exam was performed according to our departmental dose-optimization program, which includes automated exposure control, adjustment of the mA and/or kV according to patient size and/or use of iterative reconstruction technique. Qualifiers - * PATEINT BEING DISCHARGED WITH ANY OF THE FOLLOWING DIAGNOSIS?: No Plan Discharge Plan: Patient is being discharged home with new medications for diabetes and hypertension. She is also being set up with a new primary care doctor. He is asked to return to medical care with any concerning symptoms. Time Spent: Greater than 30 Minutes
[2017-12-19] MEDS ORDERED: INSULIN LISPRO 100 UNIT/ML 3 ML VIAL SUBCUT SCH (16:00)
[2017-12-19 17:05] VITALS: BP 164/73
== END 2017-12-19 18:15 | disposition home or self-care (01) | DRG 638 ==
LOC: ER 21:57 → EH 12-17 03:14 → 5 12-17 03:49
PROVIDERS: ADMIT Internal Medicine; ATTEND Internal Medicine
DX: E11.65 Type 2 diabetes mellitus with hyperglycemia (principal); E87.2 Acidosis; N13.30 Unspecified hydronephrosis; C18.9 Malignant neoplasm of colon, unspecified; E87.6 Hypokalemia; I10 Essential (primary) hypertension; M54.9 Dorsalgia, unspecified; E78.5 Hyperlipidemia, unspecified; D72.825 Bandemia; Z90.49 Acquired absence of other specified parts of digestive tract
CPT/HCPCS: 36415; 74174; 80048; 80053; 81001; 82962; 83036; 83605; 83690; 84484; 85025; 85027; 85610; 85730; 87040; 87086; 93005; 93010; 96361; 96365; 96375; 99291; J0692; J1335; J1650; J1815; J2270; J2405; J2765; J3010; J7030; S0119

== ENCOUNTER 2018-05-26 14:11 | Emergency (ER) | payer MEDICARE ==
[2018-05-26 14:18] VITALS: BP 171/93
--- NOTE | 2018-05-26 14:37 | ER Document Report ---
ED Fall - General Chief Complaint: Fall Injury Stated Complaint: FALL/BACK PAIN Time Seen by Provider: 05/26/18 14:30 Mode of Arrival: Ambulatory Information source: Patient Notes: 72-year-old female presents to ED for complaint of low back pain. She states 2 trees fell on the house she stated an aunt and she tripped and fell over the degrees. She states now she has pain in the coccyx area. She states she has had a broken bone in this area and surgery in the past. TRAVEL OUTSIDE OF THE [place] IN LAST 30 DAYS: No - HPI Occurred: This morning Where: Home, Indoors Context: Tripped Associated symptoms: None Location of injury/pain: Back Quality of pain: Sharp Severity: Moderate Pain Level: 4 - Related data Allergies/Adverse Reactions: No Known Allergies Allergy (Verified 05/26/18 14:12) Past Medical History - General Information source: Patient - Social History Smoking Status: Never Smoker Cigarette use (# per day): No Chew tobacco use (# tins/day): No Smoking Education Provided: No Frequency of alcohol use: None Drug Abuse: None Lives with: Family Family History: Reviewed & Not Pertinent Patient has suicidal ideation: No Patient has homicidal ideation: No - Past Medical History Cardiac Medical History: Reports: Hx Hypercholesterolemia, Hx Hypertension Pulmonary Medical History: Reports: None EENT Medical History: Reports: None Neurological Medical History: Reports: None Endocrine Medical History: Reports: Hx Diabetes Mellitus Type 2 - borderline Renal/ Medical History: Reports: None Malignancy Medical History: Reports: None GI Medical History: Reports: None Musculoskeletal Medical History: Reports Hx Arthritis Skin Medical History: Reports None Psychiatric Medical History: Reports: None Traumatic Medical History: Reports: None Infectious Medical History: Reports: None Past Surgical History: Reports: Hx Abdominal Surgery - colon ca, Hx Bowel Surgery - colon resection, Other - Partial colectomy - Immunizations Immunizations up to date: No Hx Diphtheria, Pertussis, Tetanus Vaccination: No Hx Pneumococcal Vaccination: 09/12/00 Review of Systems - Review of Systems Constitutional: No symptoms reported EENT: No symptoms reported Cardiovascular: No symptoms reported Respiratory: No symptoms reported Gastrointestinal: No symptoms reported Genitourinary: No symptoms reported Female Genitourinary: No symptoms reported Musculoskeletal: Back pain - Lumbar pain Skin: No symptoms reported Hematologic/Lymphatic: No symptoms reported Neurological/Psychological: No symptoms reported -: Yes All other systems reviewed and negative Physical Exam - Vital signs Vitals: Temp Pulse Resp BP Pulse Ox 97.3 F 75 16 171/93 H 97 05/26/18 14:16 05/26/18 14:16 05/26/18 14:16 05/26/18 14:16 05/26/18 14:16 Interpretation: Normal - General General appearance: Appears well, Alert - HEENT Head: Normocephalic, Atraumatic Eyes: Normal Pupils: PERRL - Respiratory Respiratory status: No respiratory distress Chest status: Nontender Breath sounds: Normal Chest palpation: Normal - Cardiovascular Rhythm: Regular Heart sounds: Normal auscultation Murmur: No - Abdominal Inspection: Normal Distension: No distension Bowel sounds: Normal Tenderness: Nontender Organomegaly: No organomegaly - Back Back: Normal, Tender, Vertebra tenderness - Sacral area. No: Deformity/step-off , CVA tenderness, Scars, Scoliosis, Wounds Notes: No signs or symptoms of cauda equina were noted while patient was here. Patient was alert and oriented respirations regular and unlabored speaking in full sentences walking with a even steady gait. Patient had no loss control of bowel bladder, no saddle anesthesia, no loss of sensation or control of lower extremities. - Extremities General upper extremity: Normal inspection, Nontender, Normal color, Normal ROM , Normal temperature General lower extremity: Normal inspection, Nontender, Normal color, Normal ROM , Normal temperature, Normal weight bearing. No: Sandra's sign - Neurological Neuro grossly intact: Yes Cognition: Normal Orientation: AAOx4 [place] Coma Scale Eye Opening: Spontaneous Susan Coma Scale Verbal: Oriented [place] Coma Scale Motor: Obeys Commands Susan Coma Scale Total: 15 Speech: Normal Motor strength normal: LUE, RUE, LLE, RLE Sensory: Normal - Psychological Associated symptoms: Normal affect, Normal mood - Skin Skin Temperature: Warm Skin Moisture: Dry Skin Color: Normal Course - Vital Signs Vital signs: Temp Pulse Resp BP Pulse Ox 97.3 F 75 16 171/93 H 97 05/26/18 14:16 05/26/18 14:16 05/26/18 14:16 05/26/18 14:16 05/26/18 14:16 - Diagnostic Test Radiology reviewed: Image reviewed, Reports reviewed Discharge - Discharge Clinical Impression: Fall Qualifiers: Encounter type: initial encounter Qualified Code(s): W19.XXXA - Unspecified fall, initial encounter Contusion of sacrum Qualifiers: Encounter type: initial encounter Qualified Code(s): S30.0XXA - Contusion of lower back and pelvis, initial encounter Condition: Stable Disposition: HOME, SELF-CARE Instructions: Family Physicians / Practices Additional Instructions: CONTUSION: Your injury has resulted in a contusion -- a crushing of the deep tissues. No injury to important structures was detected during the physician's exam. Contusions vary in the amount of pain they cause, and in the length of time required for healing. Typically, the area will become bruised, and will remain painful to touch for two or three weeks. However, most patients are back to working and playing within a few days. After the initial period of rest and cold-packs, your symptoms (together with the doctor's recommendations) will determine how rapidly you can get back to full activity. Usually this means "do what feels okay, but don't do things that hurt." If re-examination was recommended, it's important to follow up as instructed. Call the doctor or return any time if pain increases, if swelling becomes severe, if you develop numbness or weakness in an injured extremity, or if any other alarming symptoms occur. USE OF TYLENOL (ACETAMINOPHEN): Acetaminophen may be taken for pain relief or fever control. It's much safer than aspirin, offering a wider range of "safe" dosages. It is safe during . Some brand names are Tylenol, Panadol, Datril, Anacin 3, Tempra, and Liquiprin. Acetaminophen can be repeated every four hours. The following are maximum recommended dosages: WEIGHT Dose Drops Elixir Chewable( 80mg) (LBS.) drprs=droppers tsp=teaspoon 6 40 mg 0.4 ml (1/2) 6-11 80 mg 0.8 ml (full) tsp 1 tab 12-16 120 mg 1 1/2 drprs 3/4 tsp 1 1/2 tabs 17-23 160 mg 2 drprs 1 tsp 2 tabs 24-30 240 mg 3 drprs 1 1/2 tsp 3 tabs 30-35 320 mg 2 tsp 4 tabs 36-41 360 mg 2 1/4 tsp 4 1/2 tabs 42-47 400 mg 2 1/2 tsp 5 tabs 48-53 480 mg 3 tsp 6 tabs 54-59 520 mg 3 1/4 tsp 6 1/2 tabs 60-64 560 mg 3 1/2 tsp 7 tabs 65-70 600 mg 3 3/4 tsp 7 1/2 tabs 71-76 640 mg 4 tsp 8 tabs 77-82 720 mg 4 1/2 tsp 9 tabs 83-88 800 mg 5 tsp 10 tabs >89 pounds or adults 650 mg to 900 mg Acetaminophen can be repeated every four hours. Maximum dose not to exceed 4000 mg a day. These maximum recommended dosages are slightly higher than the dosages written on the product container, but these dosages are very safe and below the toxic dosage for acetaminophen. NON-SUTURED LACERATION: Your laceration did not require suturing. Some lacerations cannot be sutured because of increased infection risk, while others simply don't need stitches because they are shallow or very short. Your injury should be protected while it heals. Usually complete healing takes 10 to 14 days. Keep the dressing clean and dry, and change it every day. If you notice increasing pain, redness, swelling, drainage, or tender lumps in the armpit or groin above the injury, infection may be present. You should call the doctor at once. ICE PACKS: Apply ice packs frequently against the painful area. Many different schedules are recommended, such as "20 minutes on, 20 minutes off" or "one hour ice, two hours rest." If you need to work, you may need to go longer between ice treatments. You should plan to have the area ice packed AT LEAST one fourth of the time. The ice should be applied over the wrap, tape, or splint, or over a layer of cloth -- not directly against the skin. Some ice bags have a built-in cloth and can be put directly on the skin. WARM PACKS: After approximately two days, apply gentle heat (such as a heating pad or hot water bottle) for about 20 to 30 minutes about every two hours -- at least four times daily. Warmth and elevation will help you make a more rapid recovery , and will ease the pain considerably. Do not use HOT heat, and never apply heat for longer than 30 minutes. The continuous heat can invisibly damage skin and muscles -- even when no burn is seen on the surface. Damaged muscles can make you MORE sore. FOLLOW-UP CARE: If you have been referred to a physician for follow-up care, call the physician s office for an appointment as you were instructed or within the next two days. If you experience worsening or a significant change in your symptoms, notify the physician immediately or return to the Emergency Department at any time for re-evaluation. Forms: Elevated Blood Pressure
--- NOTE | 2018-05-26 15:29 | RADIOLOGY REPORT (SQ) ---
EXAM DESCRIPTION: L SPINE WHOLE COMPLETED DATE/TIME: 05/26/2018 2:45 pm REASON FOR STUDY: fall tripped over branch COMPARISON: 2011 NUMBER OF VIEWS: Five views including obliques. TECHNIQUE: AP, lateral, oblique, and sacral radiographic images acquired of the lumbar spine. LIMITATIONS: None. FINDINGS: MINERALIZATION: Osteopenia. SEGMENTATION: Normal. No transitional anatomy. ALIGNMENT: Normal. VERTEBRAE: Maintained height. No fracture or worrisome bone lesion. DISCS: No focal disc space narrowing. Scattered osteophytes. POSTERIOR ELEMENTS: Pedicles and facets are intact. No pars defect or posterior arch defects. HARDWARE: None in the spine. PARASPINAL SOFT TISSUES: Normal. PELVIS: Intact as visualized. No fractures or worrisome bone lesions. SI joints intact. OTHER: No other significant finding. IMPRESSION: Mild degenerative changes. No acute fracture. TECHNICAL DOCUMENTATION: JOB ID: [id number] [employer]- All Rights Reserved Reading location - IP/workstation name: [email or web address]
[2018-05-26] MEDS ORDERED: ACETAMINOPHEN 325 MG TABLET PO ONE (16:08)
== END 2018-05-26 16:29 | disposition home or self-care (01) ==
LOC: ER 14:11
DX: S30.0XXA Contusion of lower back and pelvis, initial encounter (principal); W01.0XXA Fall on same level from slipping, tripping and stumbling without subsequent striking against object, initial encounter; Y92.009 Unspecified place in unspecified non-institutional (private) residence as the place of occurrence of the external cause; Z98.890 Other specified postprocedural states; I10 Essential (primary) hypertension
CPT/HCPCS: 72110; 99283